=== PATIENT | male | born 1960 | race Two or more races ===

== ENCOUNTER 2023-06-03 14:08 | Emergency (ER) | payer OTHER, MEDICAID ==
[~2023-06-03] VITALS: Ht 175.3 cm; Wt 124.0 kg
[2023-06-03 14:15] VITALS: O2SAT 97
[2023-06-03 15:03] LABS: BASOPHILS % 0.7 % (0.0-2.0); EOSINOPHILS % 2.2 % (0.0-5.0); HEMATOCRIT. 40.1 % (42.0-52.0); HEMOGLOBIN. 13.6 g/dL (14.0-18.0); LYMPHOCYTES % 31.9 % (20.0-50.0); MEAN CORPUSCULAR VOLUME 82.4 fL (80.0-94.0); MEAN PLATELET VOLUME 8.7 fl (7.4-10.4); MONOCYTES % 7.1 % (2.0-8.0); NEUTROPHILS % 58.1 % (40.0-76.0); PLATELET 181 x1000/uL (130-400); RED BLOOD CELL COUNT 4.87 mill/uL (4.7-6.1); RED CELL DISTRIBUTION WIDTH 14.1 % (11.6-14.6)
[2023-06-03 15:06] LABS: CHLORIDE 106 mEq/L (98-107)
[2023-06-03 15:09] LABS: PROTHROMBIN TIME 10.7 sec (9.6-11.0)
[2023-06-03] MEDS ORDERED: HYDR25SU37 RC (17:26)
[2023-06-03 18:18] VITALS: BP 140/90; PULSE 70; RESP 20; TEMP 98.2
== END 2023-06-03 18:19 | disposition home or self-care (01) ==
LOC: ER 14:08
DX: K64.8 Other hemorrhoids (principal); Z98.890 Other specified postprocedural states
CPT/HCPCS: 36415; 80053; 85025; 86850; 86900; 99283